=== PATIENT | female | born 1995 | race Caucasian/White ===

== ENCOUNTER 2016-07-26 13:15 | Emergency (ER) | payer MEDICAID ==
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
[2016-07-26 14:34] LABS: Urine Bilirubin Negative (NEGATIVE); Urine Blood Negative /ul (NEGATIVE); Urine Ketone 5 mg/dL (NEGATIVE); Urine Nitrite Negative (NEGATIVE); Urine Protein Negative (NEGATIVE); Urine Specific Gravity >=1.030 SP.GR. (1.005-1.010); Urine Urobilinogen Normal (NORMAL)
[2016-07-26 14:46] LABS: Urine Appearance Slightly Cloudy; Urine Bacteria 3+; Urine Color Yellow; Urine RBC 0-5 /hpf (0-5); Urine WBC 0-5 /hpf (0-5)
[2016-07-26 14:59] VITALS: BP 143/79
== END 2016-07-26 16:28 | disposition home or self-care (01) ==
LOC: ER 13:15
DX: S16.1XXA Strain of muscle, fascia and tendon at neck level, initial encounter (principal); V89.2XXA Person injured in unspecified motor-vehicle accident, traffic, initial encounter; O26.899 Other specified pregnancy related conditions, unspecified trimester

== ENCOUNTER 2016-11-29 08:46 | Day surgery (SDC) | payer MEDICAID ==
[~2016-11-29 08:46] MED LIST: RINGERS SOLUTION,LACTATED 1,000 ML IV PRN; ceFAZolin SODIUM 1 GM in DEXTROSE 5 % IN WATER 100 ML IV PRN
--- OUTSIDE RECORDS SUMMARY | 2016-11-29 08:49 | XMS REPORT | Continuity of Care Document ---
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 laboratory is certified under the Clinical Laboratory Improvement Amendments of 1988 (CLIA) as qualified to perform high complexity clinical laboratory testing.
[2016-11-29] MEDS ORDERED: ceFAZolin SODIUM 1 GM VIAL IV ONE (09:55)
[2016-11-29] MEDS ORDERED: BUPIVACAINE HCL 50 ML VIAL IJ ONE (10:15)
--- NOTE | 2016-11-29 10:51 | OR ---
Operative Report - Dictated Report Narrative: Date: 11/29/2016 Preoperative diagnosis: umbilical hernia postoperative diagnosis: same Staff surgeon: Raj Burks MD Procedure: Umbilical hernia repair with small ventralex mesh patch Description of procedure: The patient was placed in the supine position and the abdomen was prepped and draped in a sterile fashion a field block was performed around the umbilicus. A supraumbilical curvilinear incision was carried out. Dissection was taken down to the abdominal wall and the hernia sac was opened. In the office this was not reducible however today this hernia was not incarcerated. The hernia defect measured 24 mm in diameter. A probe peritoneal pocket was formed with finger dissection and sponge packing. A small ventral X patch was inserted into the properitoneal pocket and the tails were trimmed to length. The tails were wrapped around the fascial rim and the prosthesis was secured with a running whipstitch of 3-0 Prolene taken circumferentially around the hernia rim and tied down to itself. Hemostasis appeared to be adequate. The incision was closed with a subcuticular stitch of 4-0 Vicryl. The incision was sealed with Dermabond. The patient tolerated the procedure well without any complications and was discharged from the operating room in stable condition.
[2016-11-29] MEDS ORDERED: HYDROcodone/ACETAMINOPHEN 1 EACH TABLET PO PRN (11:10)
[2016-11-29 12:36] VITALS: BP 102/55
== END 2016-11-29 08:47 | disposition home or self-care (01) ==
LOC: AMB 08:46
PROVIDERS: ATTEND Specialist
PROC: 0WUF0JZ Supplement Abdominal Wall with Synthetic Substitute, Open Approach (ICD-10-PCS; principal; 2016-11-29 09:45)
DX: K42.9 Umbilical hernia without obstruction or gangrene (principal); Z87.891 Personal history of nicotine dependence; Z68.27 Body mass index [BMI] 27.0-27.9, adult

== ENCOUNTER 2017-05-05 22:41 | Emergency (ER) | payer MEDICAID, OTHER ==
--- NOTE | 2017-05-05 23:09 | ERNOTE ---
Date of Service: 05/05/17 Time Seen by Provider: 05/05/17 22:58 Stated Complaint: BRONCHITIS Presenting Symptoms:: cough Immunizations: IMMUNIZATION HX Immunizations Up to Date Yes History of Influenza Vaccine No Hx Pneumococcal Vaccination No Allergies/Adverse Reactions: Allergies bee venom protein (honey bee) Allergy (Severe, Verified 05/05/17 22:48) Swelling (Other) latex Allergy (Unknown, Verified 05/05/17 22:48) Home Medications: HOME MEDICATIONS Divalproex Sodium [Depakote] 500 mg PO DAILY 05/05/17 [Last Taken Unknown] busPIRone HCL [Buspar] 5 mg PO PRN PRN 05/05/17 [Last Taken Unknown] - History of Present Ilness Narrative: This is a 22-year-old female who has a 7-month-old child who has been having coughing and runny nose for the last 3 weeks. Patient comes to the emergency department complaining of one day of a nonproductive cough. She says that her throat felt quite scratchy earlier today and this evening she started having coughing. Her primary concern for coming to the emergency department was making sure she was okay to throw a birthday alliance party for her other child on Monday. She's had no fever no shortness of breath. She says she feels like she can't get a deep breath in. She has had no sputum production. She has had no leg swelling. He has no other complaints Review of Systems - Review of Systems Respiratory: Present: See HPI, cough All Other Systems: All systems neg except as marked - Patient's Past Medical History Patient History - Medical: Anemia, Anxiety, Bipolar, Migraines, UTI'S Patient History - Cardiac/Respiratory: No pertinent hx Patient History - Cancer: No Hx of Cancer Patient History - Surgical Procedures: , D & C, Other Patient History - Other: None - Family History Mother Family History - Medical: , History Unknown, Diabetes Type 2, Other Family History - Cardiac/Respiratory: History Unknown Family History - Cancer: History Unknown Father Family History - Medical: Kidney stone Family History - Cardiac/Respiratory: No pertinent hx Family History - Cancer: No pertinent family hx - Social History Living Situations: home Abuse History: No History of abuse Psych History: Hx of Anxiety, Hx of Depression, Hx of Bipolar Disorder, Hx of Eating Disorder Smoking Status: Never smoker Have you smoked in the past 12 months: No Do you dip or chew tobacco: No Alcohol Use: none Drug Use: none - Immunizations Immunizations Up to Date: Yes Hx Pneumococcal Vaccination: No History of Influenza Vaccine: No Physical Exam - Physical Exam General Appearance: Present: wd/wn, alert, no apparent distress Head Exam: Present: normal inspection, no evidence of injury Ears, Nose, Throat: Present: normal pharynx, other - patient has a few tiny erythematous dots on her uvula. No tonsillar hypertrophy. No exudate Neck: Present: normal inspection, nontender Respiratory: Present: no respiratory distress, normal breath sounds, no accessory muscle use, chest nontender, lungs clear, other - patient has no wheezing. Unable to obtain even a forced expiratory wheeze Cardiovascular/Chest: Present: regular rate, rhythm, no murmur, normal peripheral pulses, other - patient's heart rate is 95 when I evaluate her Gastrointestinal/Abdominal: Present: normal bowel sounds, nontender, nondistended Back Exam: Present: normal inspection Extremity Exam: Present: normal inspection, no edema Neurological Exam: Present: alert, oriented, normal mood/affect, no motor/ sensory deficits Skin Exam: Present: normal color, warm/dry Lymphatic Exam: Present: no adenopathy ED Progress - Vital Signs Patient's Vital Signs:: I have reviewed the patient's vital signs. Vital Signs: Vital Signs 05/05/17 22:44 Temperature 36.7 C Pulse Rate 105 H Respiratory 16 Rate Blood Pressure 128/86 O2 Sat by Pulse 98 Oximetry - Progress/Reassessment Chief Complaint: Cough Departure Clinical Impression: Upper respiratory infection Qualifiers: URI type: unspecified viral URI Qualified Code(s): J06.9 - Acute upper respiratory infection, unspecified; B97.89 - Other viral agents as the cause of diseases classified elsewhere; B97.89 - Other viral agents as the cause of diseases classified elsewhere - Departure Disposition: Home self-care Condition: Good Instructions: Upper Respiratory Infection, Adult, [id number] Additional Instructions: As we discussed the symptoms that you're having are very suspicious for an upper respiratory infection. The most likely cause of this is a viral infection. You have only had symptoms for 1 day. He has not had fever or significant sputum production. Therefore x-rays and antibiotics are not indicated. You have no wheezing in her lungs to indicate the need for steroids. He should fight this off within a few days. You can try putting a cool mist machine nearby bedside to help moisturize the air and get up the mucus. He should start feeling better as your body fights this off. Do not be surprised if you continue to have some discomfort when you cough for a day or 2. Follow-up with her family doctor. Return to the ER for new concerning symptoms Referrals: Dick Lino DO [Primary Care Provider] -
[2017-05-05 23:11] VITALS: BP 133/73
== END 2017-05-05 23:11 | disposition home or self-care (01) ==
LOC: ER 22:41
DX: J06.9 Acute upper respiratory infection, unspecified (principal); B97.89 Other viral agents as the cause of diseases classified elsewhere; F41.9 Anxiety disorder, unspecified; F31.70 Bipolar disorder, currently in remission, most recent episode unspecified